=== PATIENT | male | born 1995 | race African-American/Black ===

== ENCOUNTER 2021-10-16 15:18 | Emergency (ER) | payer OTHER ==
[~2021-10-16] VITALS: Ht 177.8 cm; Wt 90.0 kg
[2021-10-16 15:25] VITALS: BP 124/81
== END 2021-10-16 15:50 ==
LOC: ER 15:18
DX: S02.92XA Unspecified fracture of facial bones, initial encounter for closed fracture (principal); X58.XXXA Exposure to other specified factors, initial encounter; Y93.89 Activity, other specified; Y92.89 Other specified places as the place of occurrence of the external cause; Y99.8 Other external cause status
CPT/HCPCS: 99283